=== PATIENT | female | born 2005 | race Caucasian/White ===

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

== ENCOUNTER 2025-11-09 15:08 | Emergency (ER) | payer OTHER, SELFPAY ==
--- OUTSIDE RECORDS SUMMARY | 2025-11-07 11:30 | XMS_ITS | Encounter Summary ---
Author Organization [facility] Address [address] [place] [address] Care Team Providers Care Machine Bobbin Winder Name Role Phone Ricky Ibarra MD Primary Care Provider [phone] Reason for Visit * Reason Comments Poor Appetite Encounter Details Date Type Department Care Team ([facility] st Contact Info) Description 11/07/2025 11:30 AM EST Office Visit Internal Medicine - [address] [address] Ghislaine Portillo, REJI [address] [place] [address] Poor appetite (Primary Dx); Nauseous; Anxiety Social History Tobacco Use Types Packs/Day Years Used Date Smoking Tobacco: Never Smokeless Tobacco: Never Tobacco Cessation:Counseling Given: Not Answered Alcohol Use Standard Drinks/Week Comments No 0 (1 standard drink = 0.6 oz pur e alcohol) Comments No Sex and Gender Information Value Date Recorded Sex Assigned at Not on file Legal Sex Female 12:13 AM EST Gender Identity Not on file Sexual Orientation Not on file documented as of this encounter Last Filed Vital Signs Vital Sign Reading Time Taken Comments Blood Pressure 105/72 11/07/2025 11:39 AM EST Pulse 89 11/07/2025 11:39 AM EST Temperature 36.4 C (97.6 F) 11/07/2025 11:39 AM EST Respiratory Rate - - Oxygen Saturation - - Inhaled Oxygen Concentration - - Weight 51 kg (112 lb 6.4 oz) 11/07/2025 11:39 AM EST Height - - Body Mass Index 20.56 07/03/2024 11:24 AM EDT documented in this encounter Ordered Prescriptions Prescription Sig Dispense Quantity Refills Last Filled Start Date End Date ondansetron (ZOFRAN) 4 mg tabletIndications: Nauseous Take 1 tablet (4 mg total) by mouth every 8 (eight) hours if needed for nausea or vomiting for up to 7 days. 20 tablet 11/07/2025 documented in this encounter Progress Notes * Ghislaine Portillo NP - 11/07/2025 11:30 AM EST Behavioral Health Clinics Clinics with multiple Locations in [facility]: (* accepts [facility]) [facility] ([facility])* Offers behavioral health and substance abuse treatment, offers crisis intervention [phone] ([phone]) Mental Health or Substance Abuse Crisis [phone] Website: [facility]org Offers telehealth [employer] [place] ([facility])* Offers behavioral health and substance abuse treatment [phone] ([phone]) Website: [facility].org Clinical Support Options ([facility] [employer])* Offers behavioral health and substance abuse treatment, offers crisis intervention Mental Health crisis: [phone] ([place]) [phone] ([place]) www.csoin.org Offers telehealth [facility]* Offers behavioral health and substance abuse treatment, bi-lingual ([place]) Website: www.[facility] [email or web address] [facility]* Offers behavioral health services [phone] Www.[email or web address].org Service[facility]* Offers behavioral health services [phone] Multiple locations ([place], [place], [place], [place], [place]) [email or web address] Additional Behavioral Health Clinics by City/Town: [facility]: [facility] [address] [facility], [address] ext. 210 Website: colonycare.net [place]: [facility]* [address] [facility], [facility] [address], [place], [place] [phone] Website: SaveFans! [place]: [facility] [address] [place], [place] [phone] [facility] Services [place]* [address] [facility], [address], [place], [place] [phone] Website: [employer] [facility] [address], [place], [place] [phone] Website: www.[facility] boys[facility]eport.io [place]: [facility] [place] [facility] Integrated Behavioral Health Services [address] [place], [place] [phone] [place]: [facility] [address] [place], [place] [phone] [place]: [facility] Behavioral Health Services [address] [place], [place] [phone] [place]: [facility] [address] [address], [place], [place] [phone] [place]: [facility]* [address] [facility] A [phone] Behavioral Health Resources for Seniors: [facility] [address] [place] [address] SHINE Program through the [place] on Aging* or call your local Senior Center Insurance specific information for behavioral health: Aetna: www.aetnaLightPath Appshavioralhealth.Biosensia [facility]: www.[facility].org, or contact [phone] to find an in-network operations center engineer Health [place]: [facility].org/behavioral-health [facility] ([facility]): This is a specific [facility] plan that has some private providers: www.WorkWell Systems.Biosensia www.Needcheck.Biosensia [facility] (manages mental health benefits for [facility], [facility] Navigator Plans, [facility] Indemnity, and sometimes other plans) Substance Abuse Treatment [facility] outpatient treatment center [address] [place] [address] [facility] for inpatient treatment [address] [place] [address] Website: [facility].Biosensia Offers telehealth [place] Outpatient drug and alcohol addiction treatment [address] [facility] [place] [address] [place] [phone] [place] [address], [address] [place] [address] [phone] www.ForadiansEarlySharestePosterbee.Biosensia [facility] [address] [place], [place] [phone] [facility] Outpatient opioid treatment and residential program [address] [place] [address] Website: www.[facility].org [facility] Outpatient substance abuse treatment and in-patient detox [address] [place] [address] Website: www.[facility] Centers [facility] Substance Abuse Centers: Charge Gang Weigher for all centers is [place] [phone] at extension 8808 [address] [place], [place] 125 [place], [place] 297 [place], [place] 177 [place], [place] * Ghislaine Portillo NP - 11/07/2025 11:30 AM EST CHIEF COMPLAINT: Poor Appetite History of Present Illness The patient is a 20-year-old female who presents for evaluation of decreased appetite and dry heaving. She began experiencing nausea and headaches approximately 5 days ago, on 11/03/2025. Her appetite has been diminished since the onset of these symptoms. She reports no abdominal pain or vomiting but has been experiencing dry heaving. She maintains adequate hydration and reports normal bowel movements. She suspects that her symptoms may be triggered by anxiety, particularly when exposed to the smell of marijuana, which she does not use herself. This exposure occurred in the company of friends who were smoking marijuana, and she believes this may have precipitated her current symptoms. Despite avoiding potential triggers over the past few days, her symptoms persist. She has a history of anxiety, which she believes is exacerbated by exposure to marijuana smoke. Sheis not currently under the care of a psychiatrist and does not engage in regular exercise as a coping mechanism for her anxiety. ROS: GENERAL: No malaise, significant weight loss or fever RESPIRATORY: No cough, wheezing or shortness of breath CARDIOVASCULAR: No chest pain, leg swelling or palpitations GI: See HPI PSYCH: See HPI NEURO: No persistent headache, syncope, seizures, weakness or numbness PAST MEDICAL HISTORY: There are no active problems to display for this patient. PASTSURGICAL HSTORY: Surgical History[1] IMMUNIZATIONS/INJECTIONS: Most Recent Immunizations Administered Date(s) Administered Pfizer SARS-CoV-2 COVID-19, mRNA, LNP-S, preservative free 03/11/2022 SOCIAL HISTORY: Social History[2] FAMILY HISTORY: Family History[3] MEDICATIONS DISCONTINUED/REORDERED: There are no discontinued medications. ACTIVE MEDICATIONS: Medications Taking[4] ALLERGIES: Allergies[5] PHYSICAL EXAM: Visit Vitals BP 105/72 Pulse 89 Temp 36.4 ??C (97.6 ??F) (Oral) Wt 51 kg (112 lb 6.4 oz) BMI 20.56 kg/m?? OB Status Injection Smoking Status Never BSA 1.5 m?? Body mass index is 20.56 kg/m??. APPEARANCE: Alert and in no acute distress EYES: PERRL, conjunctiva and sclera normal HEART: RRR with normal S1 and S2 LUNG: clear to auscultation EXTREMITIES: Extremities warm and well perfused without clubbing, cyanosis, or edema NEURO: Awake, alert and oriented x 3. Cranial nerves II-XII intact LABS: LABS/IMAGING: No results found for: WBC , HGB , HCT , MCV No results found for: NA , K , CO2 , CL , BUN , GLU , ALB , ALKPHOS , TP No results found for: CHOL , LDL , HDL , TRIG IMPRESSION / Plan 1. Poor appetite 2. Nauseous ondansetron (ZOFRAN) 4 mg tablet 3. Anxiety Assessment & Plan 1. Nausea and decreased appetite: - Her weight has remained stable compared to the previous year, indicating no significant weight loss. Symptoms started about 5 days ago and include nausea, headache, and dry heaving, potentially triggered by exposure to marijuana smoke. - She is not experiencing any abdominal pain or vomiting. - She is advised to maintain adequate hydration and avoid potential triggers. - A prescription for Zofran, to be taken every 8 hours as needed, will be provided. She is encouraged to consume small, frequent meals and avoid fried and spicy foods. If she feels like eating, she should take the medication first and then eat something. 2. Anxiety: - Her anxiety may be contributing to her symptoms of nausea and decreased appetite. - She is advised to engage in regular exercise, such as walking, to help manage her anxiety. - Conservative treatments such as chamomile tea, lavender scent, music therapy, and yoga may also be beneficial. - A list of behavioral health professionals will be provided for her to contact. Follow-up: The patient will follow up as needed or every 4 months for a physical exam. Ghislaine Portillo NP on 11/07/2025 at 11:42 AM EST I have obtained verbal consent from Vivien Linda prior to the recording. I have advised Vivien Linda that she may refuse the recording and require the recording to be turned off at any time during this encounter. [1] Past Surgical History: Procedure Laterality Date OTHER SURGICAL HISTORY PROCEDURE: DENIES PREVIOUS SURGERY [2] Social History Tobacco Use Smoking status: Never Smokeless tobacco: Never Substance Use Topics Alcohol use: No Drug use: No [3] Family History Problem Relation Name Age of Onset No Known Problems Mother No Known Problems Father No Known Problems Sister No Known Problems Maternal Grandmother Diabetes Maternal Grandfather Lung cancer Maternal Grandfather Stroke Father's side PGGM Ovarian cancer Neg Hx Cervical cancer Neg Hx Uterine cancer Neg Hx Colon cancer Neg Hx Pancreatic cancer Neg Hx Prostate cancer Neg Hx [4] Outpatient Medications Marked as Taking for the 11/07/25 encounter (Office Visit) with Ghislaine Portillo NP Medication Sig Dispense Refill medroxyPROGESTERone Acetate ([id number]) 104 mg/0.65 mL injection Inject 0.65 mL (104 mg total) under the skin every 3 (three) months. [5] No Known Allergies documented in this encounter Plan of Treatment Not on file documented as of this encounter Visit Diagnoses Diagnosis Poor appetite- Primary Anorexia Nauseous Nausea alone Anxiety Anxiety state, unspecified documented in this encounter Historical Medications * This list may reflect changes made after this encounter. medroxyPROGESTERo ne Acetate ([id number] A) 104 mg/0.65 mL injection Inject 0.65 mL (104 mg total) under the skin every 3 (three) months. added in this encounter Care Teams Machine Bobbin Winder Relationship Specialty Start Date End Date Ricky Ibarra MD [address] [place] [address] PCP - General 04/28/24 documented as of this encounter
--- OUTSIDE RECORDS SUMMARY | 2025-11-09 18:47 | XMS_ITS | Encounter Summary ---
Author Organization [facility] Address [address] [place] [address] Care Team Providers Care Security Assessor Name Role Phone Ricky Ibarra MD Primary Care Provider [phone] Reason for Visit * Reason Onset Date Comments Nausea 11/09/2025 Headache 11/09/2025 Encounter Details Date Type Department Care Team (Late st Contact Info) Description 11/09/2025 Telephone Internal Medicine - [place] [address] [place] [address] Ricky Ibarra MD [address] [place] [phone] Social History Tobacco Use Types Packs/Day Years Used Date Smoking Tobacco: Never Smokeless Tobacco: Never Alcohol Use Standard Drinks/Week Comments No 0 (1 standard drink = 0.6 oz pur e alcohol) Comments No Sex and Gender Information Value Date Recorded Sex Assigned at Not on file Legal Sex Female 12:13 AM EST Gender Identity Not on file Sexual Orientation Not on file documented as of this encounter Progress Notes * Juana Zaldivar RN - 11/09/2025 1:24 PM EST Patient seen I the office 11/07 with headache and nausea given Zofran. Still is unable to take fluids. Advised to go to the ER she may need IVF. She will go to ER * Justin Pérez - 11/09/2025 12:47 PM EST Pt is calling back [phone] * Michelle Miki - 11/09/2025 10:37 AM EST Patient call requires triage: Symptoms patient is presenting: Nausea, headache. How long has patient had these symptoms?: On going. Pt seen 11/07/25 For ALL patients calling to schedule any appointment (routine, sick visit, follow up, consult, etc.) in the outpatient setting please ask the following questions: Do you have fever of higher than 101, sore throat with difficulty swallowing or severe shortness ofbreath? no If YES to any of these above symptoms, send a message to triage and do not book. Red dot. If no, an audio or video visit should be booked. Have you had close contact with someone with Coronavirus in the last 14 days? no Have you traveled abroad? no Have you traveled recently to another state outside of [place], [place], [place], [place], [place], [place], [place]? no o If yes, did you quarantine for 14 days or have a negative covid test? no If yes to any of the above, patient is not to be scheduled in office until after 14 day quarantine or negative covid test. If pain or injury related was it due to an accident at work or from a motor vehicle accident? If yes, date of accident/Injury: No If yes, gather 3rd alliance party insurance information Third Green Party Information: not applicable PCP: Ricky Ibarra MD Payor: [facility] / Plan: [facility] / Product Type: *No Product type* / documented in this encounter Plan of Treatment Not on file documented as of this encounter Visit Diagnoses Not on filedocumented in this encounter Care Teams Security Assessor Relationship Specialty Start Date End Date Ricky Ibarra MD [address] [place] [address] PCP - General 04/28/24 documented as of this encounter
--- OUTSIDE RECORDS SUMMARY | 2025-11-09 18:47 | XMS_ITS | Clinical Summary ---
Author Organization [place] [address] [address] [facility] Building Address [address] [place] [address] Phone Care Team Providers Care Vehicle Washer Name Role Phone Ricky Ibarra MD Primary Care Provider [phone] Allergies No known active allergies Medications medroxyPROGESTE Kevin Acetate ([id number] ERA) 104 mg/0.65 mL injection Inject 0.65 mL (104 mg total) under the skin every 3 (three) months. Active ondansetron (ZOFRAN) 4 mg tabletIndicatio ns:Nauseous Take 1 tablet (4 mg total) by mouth every 8 (eight) hours if needed for nausea or vomiting for up to 7 days. 20 tablet 11/07/2025 11/14/20 25 Active Encounters Date Type Department Care Team Description 11/09/2025 Telephone Internal Medicine - [address] [phone] Ricky Ibarra MD 11/07/2025 11:30 AM EST Office Visit Internal Medicine - [address] [phone] Ghislaine Portillo NP Poor appetite (Primary Dx); Nauseous; Anxiety from Last 3 Months Surgical History Surgery Date Site/Laterality Comments OTHER SURGICAL HISTORY PROCEDURE: DENIES PREVIOUS SURGERY Medical History Medical History Date Comments Mild intermittent asthma, uncomplicated DX:Mild intermittent asthma, uncomplicated Family History Medical History Relation Name Comments No Known Problems Father Stroke Father's side PGGM Diabetes Maternal Grandfather Lung cancer Maternal Grandfather No Known Problems Maternal Grandmother No Known Problems Mother No Known Problems Sister Cervical cancer Neg Hx Colon cancer Neg Hx Ovarian cancer Neg Hx Pancreatic cancer Neg Hx Prostate cancer Neg Hx Uterine cancer Neg Hx Relation Name Status Comments Father Alive 03/06/70 LON Father's side PGGM Alive Maternal Grandfather Maternal Grandmother Alive Mother Alive 08/16/73 CHELI Paternal Grandfather Alive Paternal Grandmother Alive Sister Alive 01/26/90 PANCHOAGUILA Social History Tobacco Use Types Packs/Day Years [...] on file Sexual Orientation Not on file Last Filed Vital Signs Vital Sign Reading Time Taken Comments Blood Pressure 105/72 11/07/2025 11:39 AM EST Pulse 89 11/07/2025 11:39 AM EST Temperature 36.4 C (97.6 F) 11/07/2025 11:39 AM EST Respiratory Rate - - Oxygen Saturation - - Inhaled Oxygen Concentration - - Weight 51 kg (112 lb 6.4 oz) 11/07/2025 11:39 AM EST Height 157.5 cm (5' 2 ) 07/03/2024 11:24 AM EDT Body Mass Index 20.56 07/03/2024 11:24 AM EDT Plan of Treatment Health Maintenance Due Date Last Done Comments Gonorrhea/Chlamydia Screening 2005 Meningococcal B Vaccine (1 of 2 - Standard) 2021 HIV Screening 10/18/2022 Hepatitis C Screening 10/18/2022 Social Influencers of Health Screening 10/18/2022 Depression Screening 11/15/2024 Annual Well Child Visit (3-21 years old) 06/21/2025 06/21/2024, 08/13/2022, 08/07/2021, Additional history exists COVID-19 Vaccine ( - 2024- season) 2025 03/11/2022, 02/18/2022 Influenza Vaccine (#1) 2025 0, 08/30/2009, 01/17/2008, Additional history exists DTaP,Tdap,and Td Vaccines (7 - Td or Tdap) 06/10/2027 06/10/2017, 08/30/2009, 09/17/2006, Additional history exists RSV Immunization Adult Patients (1 - 1-dose 75+ series) 2080 Hepatitis B Vaccines Completed 01/01/2006, 2005, 2005, Additional history exists Pneumococcal Vaccine: Pediatrics (0 to 5 Years) and At-Risk Patients (6 to 49 Years) Completed 07/12/2006, 01/01/2006, 2005, Additional history exists HIB Vaccines Completed 09/17/2006, 12/16, 01/01/2006, Additional history exists IPV Vaccines Completed 08/30/2009, 12/16, 01/01/2006, Additional history exists MMR Vaccines Completed 03/04/2010, 07/12/2006 Varicella Vaccines Completed 03/04/2010, 07/12/2006 Hepatitis A Vaccines Completed 08/05/2010, 06/13/20 08 HPV Vaccines Completed 01/10/2019, 06/10/2017 Meningococcal ACWY Vaccine Completed 08/07/2021, RSV Immunization Patients Under 20 months Aged Out No longer eligible based on patient's age to complete this topic Insurance [facility] [employer] Care Teams Vehicle Washer Relationship Specialty Start Date End Date Ricky Ibarra MD [address] [place] [phone] PCP - General 04/28/24
== END 2025-11-09 18:46 | disposition left against medical advice (07) ==
PROVIDERS: Emergency Provider Emergency Medicine
DX: A63.0 Anogenital (venereal) warts (principal); Z53.21 Procedure and treatment not carried out due to patient leaving prior to being seen by health care provider